=== PATIENT | male | born 1955 | race Caucasian/White ===

== ENCOUNTER 2023-08-24 09:38 | Inpatient (IN) | payer MEDICARE, OTHER ==
[~2023-08-24] VITALS: Ht 175.3 cm; Wt 118.7 kg
[2023-08-24 10:48] LABS: BASO # 0.1 K/mm3 (0.0-0.2); BASO % 0.6 % (0.0-2.0); EOS # 0.3 K/mm3 (0.0-0.7); EOS % 2.2 % (0.0-4.0); GRAN # 8.5 K/mm3 (1.4-6.5); HEMOGLOBIN 12.1 g/dl (13.5-18.0); LYMPH # 1.2 K/mm3 (1.2-3.4); LYMPH % 10.3 % (20.0-51.0); MEAN CELL VOLUME 91 fl (80.0-100.0); MEAN CORPUSCULAR HEMOGLOBIN 31 pg (27-31); MEAN CORPUSCULAR HGB CONC 34 g/dl (33.0-37.0); MEAN PLATELET VOLUME 9.4 fl (7.4-10.4); MONO # 1.2 K/mm3 (0.1-0.6); MONO % 10.5 % (1.7-9.3); PLATELET COUNT 208 K/mm3 (130-400); RED BLOOD COUNT 3.92 M/mm3 (4.20-5.60); REDCELL DISTRIBUTION WIDTH-CV 12.3 % (11.5-14.5)
[2023-08-24 10:49] LABS: HEMATOCRIT 35.6 % (42.0-52.0)
[2023-08-24 10:55] LABS: ERYTHROCYTE SEDIMENTATION RATE 14 mm/hr (0-30)
[2023-08-24 11:04] LABS: ALBUMIN 3.8 gm/dL (3.4-4.8); BILIRUBIN,TOTAL 0.9 mg/dL (0.2-1.2); C-REACTIVE PROTEIN 8.4 mg/dL (0.00-0.50); CALCIUM 9.5 mg/dL (8.4-10.2); CREATININE, serum 1.2 mg/dL (0.72-1.25); POTASSIUM 4.4 mmol/L (3.5-4.5)
[2023-08-24] MEDS ORDERED: NIASPAN1000 MG PO (11:50)
[2023-08-24] MEDS ORDERED: HCTZ 25MG TAB25 MG PO (11:50)
[2023-08-24] MEDS ORDERED: CRESTOR 10MG10 MG PO (11:50)
[2023-08-24] MEDS ORDERED: PROTONIX20 MG PO (11:50)
[2023-08-24] MEDS ORDERED: COREG 6.256.25 MG/TA PO (11:51)
[2023-08-24] MEDS ORDERED: ALTACE 10MG TAB10 MG PO (11:51)
[2023-08-24] MEDS ORDERED: MOBIC15 MG PO (11:51)
--- NOTE | 2023-08-24 12:45 | NUR ---
Patient to room 327 from the ED with at the bedside. Patient A&Ox4. VSS. IV CDI, fluids infusing. Reports pain in RT foot and requesting pain medication. Dr Yip notified. Patient ambulated independently from the wheelchair to the bed. Nurse oriented the patient to location, room and call light. RT foot elevated on pillow and ice applied. No further needs expressed. Call light within reach
[2023-08-24 13:00] VITALS: BP 137/46; PULSE 82; TEMP 97.5
[2023-08-24 16:59] VITALS: BP 138/68; PULSE 99; TEMP 99.6
[2023-08-24 19:31] VITALS: BP 131/74; PULSE 87; TEMP 100.1
[2023-08-24 20:00] VITALS: BP_SYST 120
--- NOTE | 2023-08-24 20:00 | NUR ---
UPON SHIFT ASSESSMENT, EMILY WAS AWAKE IN BED AND CHEERFUL-AXO X4. 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 WOUND IS ESCHAR COVERED MEDIAL AND LATERAL PORTION OF FOOT. HE C/O 4/10 AND INCREASING PAIN. HE STATES HE CANNOT BEAR WEIGHT ON FOOT AT ALL. VS ARE WNL. PEDAL PULSES PALPABLE AND CAP REFILL GOOD. CALL LIGHT WITHIN REACH AND BED ALARM ON.
--- NOTE | 2023-08-24 22:02 | NUR ---
Call placed to hospitalistJoselyn. Patient has no abx scheduled in [facility]. Torb to administer Zosyn and await additional orders as hospitalist consults with pharmacy.
[2023-08-24 23:27] VITALS: BP 120/69; PULSE 87; TEMP 99.8
[2023-08-25] VITALS (11 sets, daily range): BP systolic 104–147; BP diastolic 62–78; PULSE 68–86; TEMP 98.1–99.5
--- NOTE | 2023-08-25 04:47 | NUR ---
68 yo male admitted for further care and management of right foot cellulitis with possible septic arthritis and osteomyelitis of the right foot. ht 175.26 cm wt 118.7 kg (adj wt 89.9 kg) SCr 1.2 with estimated CrCl ~55 ml/min. Plan: Patient may not follow population based kinetics secondary to body habitus (BMI 38.6 kg/m2). Patient received an initial loading dose of vancomycin 1500 mg x1 in the ED; will give a supplemental loading dose of vancomycin 1000 mg x1 for a total loading dose of 2500 mg (21 mg/kg); followed by a maintenance regimen of vancomycin 1000 mg q12h to target a goal trough of 15-20 mcg/ml. Will follow patient's renal function, micro data, and vancomycin levels as indicated to assess for any necessary changes to regimen. Thank you for this dosing consult.
--- NOTE | 2023-08-25 07:00 | NUR ---
THROUGHOUT THE NIGHT EMILY WOULD RATE HIS RT FOOT PAIN 7/10. PRN MORPHINE 2MG AND NORCO WERE ADMINISTERED TWICE; ONCE AT 21:00, THEN AT 06:15. NEW LT AC WAS PLACED TO RUN VANCO WHILE ZOSYN WAS RUNNING IN RT AC. COVERED RT FOOD WOUND WITH AQUACELL THERE WAS SCANT BLOOD-TINGED PURLENT DRAINAGE. PEADAL PULSES PALPABLE. VS ARE WNL. CALL LIGHT WITHIN REACH, BED ALARM ON.
[2023-08-25 07:53] LABS: BASO % 0.4 % (0.0-2.0); EOS # 0.2 K/mm3 (0.0-0.7); EOS % 1.3 % (0.0-4.0); GRAN # 8.9 K/mm3 (1.4-6.5); GRAN % 79.6 % (42.2-75.2); HEMATOCRIT 37.4 % (42.0-52.0); HEMOGLOBIN 12.4 g/dl (13.5-18.0); LYMPH # 1.1 K/mm3 (1.2-3.4); LYMPH % 9.5 % (20.0-51.0); MEAN CELL VOLUME 93 fl (80.0-100.0); MEAN CORPUSCULAR HEMOGLOBIN 31 pg (27-31); MEAN CORPUSCULAR HGB CONC 33 g/dl (33.0-37.0); MEAN PLATELET VOLUME 9.7 fl (7.4-10.4); MONO % 8.8 % (1.7-9.3); PLATELET COUNT 204 K/mm3 (130-400); RED BLOOD COUNT 4.04 M/mm3 (4.20-5.60); REDCELL DISTRIBUTION WIDTH-CV 12.7 % (11.5-14.5)
--- NOTE | 2023-08-25 08:00 | NUR ---
PATIENT IS A&O. NOTED LOW GRADE TEMP OF 99.5, GAVE PRN MORTIN WITH AM MEDS. ALL OTHER VSS. NO C/O N/V. BREAKFAST TRAY AT BEDSIDE. IV ABX INFUSING VIA PUMPS INTO RIGHT AC IV AND LEFT AC IV. REPORTS MILD PAIN IN RLE FOOT AND REPORTS PAIN MEDS GIVEN BY TANK TENDER BEFORE SHIFT CHANGE HAS HELPED. ELEVATED RLE WITH PILLOW. NOTED +1 EDEMA TO RLE. RLE DSG IS CD&I WITH NOTED REDDNESS & WARMTH TO LATERAL FOOT. +1 PEDAL PULSES. USING URINAL. PATIENT REPORTS SEVERE PAIN WITH WEIGHT BEARING TO RLE. PLAN IS FOR MRI OF RLE TODAY, SEE ORDERS. HEAD TO TOE ASSESSMENT COMPLETE. NO OTHER NEEDS. CALL LIGHT IN REACH.
[2023-08-25 08:15] LABS: C-REACTIVE PROTEIN 22.55 mg/dL (0.00-0.50); CALCIUM 9.6 mg/dL (8.4-10.2); CREATININE, serum 1.24 mg/dL (0.72-1.25)
--- NOTE | 2023-08-25 08:43 | NUR ---
Initial visit; Patient thanked Tube Closing Machine Operator for looking in on him and stated that he feels as if he is doing well and is being wonderfully taken care of by our staff.
--- NOTE | 2023-08-25 09:16 | NUR ---
bottling room worker met with pt and spouse, Sirisha [phone] at bedside to discuss discharge planning. Pt lives with his in [place]. He sees Dr. Grady and obtains medications from [facility] with no difficulties. Pt is independent with ADLS and uses no DME. He does not have a DPOA-HC. Spouse presented a POA for [place] Property, Living Will, and HIPPA document. SW advised they are not DPOA and not signed by witnesses or notary. Sirisha said she will get the original from home. Pt declined a DPOA-HC. Pt informed PT and OT will come in to evaluate and SW will follow for needs. PT/OT pending Discharge Plan: [place]
--- NOTE | 2023-08-25 10:20 | NUR ---
WOUND CULTURE COLLECTED, NEW AQUACEL DSG APPLIED TO RLE ULCER, AND SENT CULTURE TO LAB.
--- NOTE | 2023-08-25 12:00 | NUR ---
PATIENT BACK IN ROOM FROM MRI
[2023-08-25] MEDS ORDERED: LASIX 20MG TABL20 MG PO (15:28)
--- NOTE | 2023-08-25 19:58 | NUR ---
PT A&O X4 LAYING IN BED. VSS. STATES PAIN IN RLE IS 4/10, GIVEN PRN NORCO PER PT REQUEST. DENYING N/V. AQUACELL TO INNER RIGHT FOOT IS CD&I. INT TO RIGHT AC PATENT & ZOSYN INFUSING TO LEFT AC. CALL LIGHT IN REACH & PT DENYING FURTHER NEEDS.
--- NOTE | 2023-08-25 23:52 | NUR ---
PT RESTING IN BED WITH EVEN & UNLABORED RESP. DENYING PAIN OR N/V AT THIS TIME. CALL LIGHT IN REACH.
[2023-08-26] VITALS (12 sets, daily range): BP systolic 105–139; BP diastolic 56–83; PULSE 71–79; TEMP 98.7–100.5
--- NOTE | 2023-08-26 04:46 | NUR ---
PT UP TO USE RESTROOM. STATES PAIN IS NOW 6/10 WITH MOVEMENT, GIVEN PRN SEE MAR. BACK IN BED & DENYING FURTHER NEEDS. CALL LIGHT IN REACH.
[2023-08-26 06:57] LABS: BASO % 0.4 % (0.0-2.0); EOS # 0.3 K/mm3 (0.0-0.7); EOS % 2.4 % (0.0-4.0); GRAN # 8.7 K/mm3 (1.4-6.5); GRAN % 78.8 % (42.2-75.2); HEMOGLOBIN 10.7 g/dl (13.5-18.0); LYMPH % 9.3 % (20.0-51.0); MEAN CELL VOLUME 92 fl (80.0-100.0); MEAN CORPUSCULAR HEMOGLOBIN 31 pg (27-31); MEAN CORPUSCULAR HGB CONC 34 g/dl (33.0-37.0); MEAN PLATELET VOLUME 10.4 fl (7.4-10.4); MONO % 8.8 % (1.7-9.3); PLATELET COUNT 192 K/mm3 (130-400); RED BLOOD COUNT 3.47 M/mm3 (4.20-5.60); REDCELL DISTRIBUTION WIDTH-CV 12.5 % (11.5-14.5)
[2023-08-26 07:02] LABS: HEMATOCRIT 31.8 % (42.0-52.0)
[2023-08-26 07:19] LABS: C-REACTIVE PROTEIN 27.49 mg/dL (0.00-0.50); CALCIUM 9.1 mg/dL (8.4-10.2); CREATININE, serum 1.3 mg/dL (0.72-1.25); POTASSIUM 3.8 mmol/L (3.5-4.5)
--- NOTE | 2023-08-26 09:39 | NUR ---
PATIENT ALERT AND ORIENTED X4. VSS. PATIENT REPORTS PAIN TO RLE, RATING 9/10. PAIN MEDICATION ADMINISTERED. IV'S X2 TO RIGHT AND LEFT AC, INT AND FLUSH WELL. PATIENT UP TO CHAIR EATING BREAKFAST. DRESSING TO RLE WITH DRAINAGE. NO FURTHER NEEDS. CALL LIGHT IN REACH. CHAIR ALARM ON.
--- NOTE | 2023-08-26 12:07 | NUR ---
PATIENT RUNNING LOW GRADE TEMP, ADMINISTERED TYLENOL. WILL RECHECK TEMP.
--- NOTE | 2023-08-26 20:00 | NUR ---
PT A&O X4 SITTING UP IN CHAIR. VSS. STATES PAIN IN RLE IS 4/10 & DENIES THE NEED FOR PAIN MEDS AT THIS TIME. DRESSING TO RIGHT FOOT IS CD&I. DENYING N/V. INT TO LEFT & RIGHT AC PATENT. PT DENYING FURTHER NEEDS. CALL LIGHT IN REACH.
[2023-08-27] VITALS (16 sets, daily range): BP systolic 117–151; BP diastolic 54–83; PULSE 70–84; TEMP 97.9–98.9
--- NOTE | 2023-08-27 05:43 | NUR ---
PT SLEPT IN CHAIR LAST NIGHT. STATES PAIN THIS MORNING AROUND 0445 WAS 6/10, GIVEN PRN MORPHINE. PT HAS BEEN NPO SINCE MIDNIGHT. DENYING FURTHER NEEDS & CALL LIGHTS IN REACH.
[2023-08-27 07:02] LABS: BASO % 0.4 % (0.0-2.0); EOS # 0.4 K/mm3 (0.0-0.7); EOS % 3.8 % (0.0-4.0); GRAN # 8.6 K/mm3 (1.4-6.5); GRAN % 78.7 % (42.2-75.2); HEMOGLOBIN 11.2 g/dl (13.5-18.0); LYMPH % 8.9 % (20.0-51.0); MEAN CELL VOLUME 91 fl (80.0-100.0); MEAN CORPUSCULAR HEMOGLOBIN 31 pg (27-31); MEAN CORPUSCULAR HGB CONC 34 g/dl (33.0-37.0); MEAN PLATELET VOLUME 9.9 fl (7.4-10.4); MONO # 0.9 K/mm3 (0.1-0.6); MONO % 7.9 % (1.7-9.3); PLATELET COUNT 221 K/mm3 (130-400); REDCELL DISTRIBUTION WIDTH-CV 12.5 % (11.5-14.5)
[2023-08-27 07:08] LABS: HEMATOCRIT 32.7 % (42.0-52.0)
[2023-08-27 07:16] LABS: C-REACTIVE PROTEIN 26.94 mg/dL (0.00-0.50); CALCIUM 9.9 mg/dL (8.4-10.2); CREATININE, serum 1.26 mg/dL (0.72-1.25)
--- NOTE | 2023-08-27 08:00 | NUR ---
PATIENT IS A&O AND SITTING UP IN BEDSIDE CHAIR. VSS. C/O PAIN RATED AT 5-6 ON PAIN SCALE IN RLE. GAVE PRN NORCO WITH AM MEDS, SEE MAR, WITH SIPS OF WATER. NPO FOR PENDING SURGERY TODAY AT 1230. NPO. IV ABX INFUSING VIA PUMP INTO LEFT AC IV. RIGHT AC IV TO INT. CONSENT ON CHART. NOTED +2 EDEMA IN BLE. RLE IS RED/WARM AND HAS PRESSURE DSG INPLACE. HEAD TO TOE ASSESSMENT COMPLETE. NO OTHER NEEDS AT THIS TIME. CALL LIGHT IN REACH.
--- NOTE | 2023-08-27 12:25 | NUR ---
PATIENT ASSISTED BACK INTO BED FROM CHAIR. PRE-OP MEDS GIVEN. IV FLUIDS TO GRAVITY PER ORDERS, SEE MAR. CONSENT ON CHART. FAMILY AT BEDSIDE. PATIENT GOING DOWN TO OR.
--- NOTE | 2023-08-27 15:15 | NUR ---
PATIENT BACK FROM SURGERY. A&O. VSS. NO COMPLAINTS. RLE DSG IS CD&I WITH HEMOVAC DRAIN INPLACE. RLE ELEVATED AND ICE PACK INPLACE. FAMILY AT BEDSIDE. NO OTHER NEEDS AT THIS TIME.
--- NOTE | 2023-08-27 19:50 | NUR ---
PT IS A&O BUT DROWSY & LAYING IN BED. VSS. DENYING PAIN OR N/V AT THIS TIME. DRESSING & ACEWRAP TO RIGHT FOOT IS CDI & HEMOVAC WITH BLOODY DRAINAGE. ICE PACK TO RIGHT FOOT. OR GRAVITY FLUIDS INFUSING TO RIGHT WRIST, ANTIBIOTICS TO RIGHT AC & INT TO LEFT AC PATENT. PT DENYING FURTHER NEEDS. CALL LIGHT IN REACH.
[2023-08-28 00:50] VITALS: BP_SYST 118
[2023-08-28 03:18] VITALS: BP 161/70; PULSE 77; TEMP 97.6
--- NOTE | 2023-08-28 03:45 | NUR ---
PT ACCIDENTLY PULLED HEMOVAC OUT, DIRECTOR OF RADIOLOGY IN TO LOOK AT. HAS HAD 10ML OUT OF HEMOVAC SINCE BACK FROM SURGERY. ORIGINAL DRESSING REMAINS TO RIGHT FOOT. ERIKA JUAN AWARE. PT STATES HE IS STARTING TO GET SOME FEELING BACK & IS ABLE TO MOVE TOES. DENYING ANY PAIN AT THIS TIME. CALL LIGHT IN REACH & DENYING FURTHER NEEDS.
[2023-08-28 04:11] VITALS: BP_SYST 161
[2023-08-28 07:32] LABS: HEMOGLOBIN 10.8 g/dl (13.5-18.0); MEAN CELL VOLUME 89 fl (80.0-100.0); MEAN CORPUSCULAR HEMOGLOBIN 31 pg (27-31); MEAN CORPUSCULAR HGB CONC 35 g/dl (33.0-37.0); MEAN PLATELET VOLUME 9.8 fl (7.4-10.4); PLATELET COUNT 253 K/mm3 (130-400); RED BLOOD COUNT 3.49 M/mm3 (4.20-5.60); REDCELL DISTRIBUTION WIDTH-CV 12.1 % (11.5-14.5)
[2023-08-28 07:34] LABS: HEMATOCRIT 31.2 % (42.0-52.0)
[2023-08-28 07:56] LABS: C-REACTIVE PROTEIN 19.43 mg/dL (0.00-0.50); CALCIUM 9.4 mg/dL (8.4-10.2); CREATININE, serum 1.14 mg/dL (0.72-1.25); POTASSIUM 4.4 mmol/L (3.5-4.5)
[2023-08-28 07:59] VITALS: BP 147/79; PULSE 68; TEMP 98.1
[2023-08-28 08:04] LABS: BAND 3 % (0-10); LYMPHOCYTE 2 % (20.0-51.0); NEUTROPHILS 93 % (42.0-75.2); PLATELET ESTIMATE NORMAL (NORMAL)
[2023-08-28 09:00] VITALS: BP_SYST 147
--- NOTE | 2023-08-28 09:56 | NUR ---
animal nursery worker was informed patient will be discharging today with HH services being reccomended. KELLEN met with pt and his , Nancy at bedside. PT Junior was in the room and reports patient would like to go home and not do IPR. SW provided the Medicare.gov list and they chose [facility]. KELLEN completed IM from Medicare. Pt signed and provided a copy. Original in chart. Patient was informed the wheelchair can be brought to the room or they can pick it up. They will retrieve it on their way out. KELLEN faxed [facility] referral. Job reports she can accept. KELLEN emailed wheelchair request to [facility]. Family is agreeable to picking it up at discharge and KELLEN informed [facility]. Discharge Plan: Home with [facility]
--- NOTE | 2023-08-28 10:53 | NUR ---
PATIENT ALERT AND ORIENTED X4. VSS. PATIENT HERE FOR RIGHT FOOT ULCER, RIGHT GREAT TOE AMPUTATION. IV'S X3 TO RIGHT AND LEFT AC, INT AND FLUSH WELL. RIGHT WRIST IV FLUSHES WELL. DRESSING TO RLE CLEAN AND INTACT. WILL CHANGE PRIOR TO DISCHARGE. PATIENT DENIES ANY PAIN AT THIS TIME. TOLERATING PO. NO FURTHER NEEDS. CALL LIGHT IN REACH.
[2023-08-28] MEDS ORDERED: CEPHALEXIN500 M1 PO (11:01)
[2023-08-28] MEDS ORDERED: NORCO 325 MG-51 TAB PO (11:02)
[2023-08-28 12:00] VITALS: BP 115/58; PULSE 68; TEMP 98.3
--- NOTE | 2023-08-28 12:53 | NUR ---
DISCHARGE INSTRUCTIONS PROVIDED. PATIENT EDUCATION GIVEN. IV'S X3 DC'D. DRESSING TO RLE CHANGED. DRESSING INSTRUCTIONS PROVIDED. MEDICATIONS REVIEWED. FOLLOW UP APPOINTMENTS DISCUSSED. PATIENT AND DENY ANY QUESTIONS OR CONCERNS. PATIENT ESCORTED OUT VIA WHEELCHAIR.
--- NOTE | 2023-08-31 12:48 | NUR ---
forensic social worker contacted Job at [facility] and confirmed that when [facility] called to schedule admission, patient declined their services.
--- NOTE | 2023-08-31 14:20 | NUR ---
foster care social worker notified Dr Grady's office that patient declined home health. RN, Kirsty, notifed this worker that she called the patient and now [facility] is reset up to see patient as patient now agreed to let home health see him.
== END 2023-08-28 12:54 | disposition home or self-care (01) | DRG 475 ==
LOC: COL.ER 09:38 → SURG 11:48
PROVIDERS: Personal Emergency Response Attendant; Physician Assistant; ADMIT Internal Medicine
PROC: 0Y6M0Z9 Detachment at Right Foot, Partial 1st Ray, Open Approach (ICD-10-PCS; principal; 2023-08-24)
DX: M86.8X7 Other osteomyelitis, ankle and foot (principal); L03.115 Cellulitis of right lower limb; D64.9 Anemia, unspecified; I10 Essential (primary) hypertension; E66.01 Morbid (severe) obesity due to excess calories; Z68.35 Body mass index [BMI] 35.0-35.9, adult; R73.03 Prediabetes; E78.5 Hyperlipidemia, unspecified; K43.9 Ventral hernia without obstruction or gangrene
CPT/HCPCS: J0696; J1100; J1170; J1650; J2250; J2270; J2543; J2704; J2765; J3010; J3370; J7050; J7120

== ENCOUNTER → 2024-05-27 | Outpatient (REF) | payer MEDICARE, OTHER ==
[~2024-05-27] MED LIST: ALTACE 10MG TAB10 MG PO; CEPHALEXIN500 M1 PO; COREG 6.256.25 MG/TA PO; CRESTOR 10MG10 MG PO; HCTZ 25MG TAB25 MG PO; LASIX 20MG TABL20 MG PO; MOBIC15 MG PO; NIASPAN1000 MG PO; NORCO 325 MG-51 TAB PO; PROTONIX20 MG PO
[2024-05-27 15:18] LABS: EOSINOPHIL 2 % (0-4); LYMPHOCYTE 42 % (20.0-51.0); NEUTROPHILS 49 % (42.0-75.2); PLATELET ESTIMATE NORMAL (NORMAL)
== END ==
LOC: ZCOL.LAB 13:08
PROVIDERS: Family Medicine
DX: D64.9 Anemia, unspecified (principal)